=== PATIENT | female | born 1965 | race Caucasian/White ===

== ENCOUNTER 2019-12-08 16:46 | Emergency (ER) | payer BC, SELFPAY ==
[2019-12-08 17:08] VITALS: BP 125/80; PULSE 80; RESP 16; TEMP 36.7; O2SAT 99
--- NOTE | 2019-12-08 17:32 | ED.GENADULT ---
HPI - General Adult General Chief complaint: Wound/Laceration Stated complaint: R FOREARM INJURY Source: patient and RN notes reviewed Mode of arrival: ambulatory Limitations: no limitations History of Present Illness HPI narrative: 2 days ago this patient scratched her right ventral forearm over the ulnar aspect on a wire. 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 This was a superficial abrasion but it has become reddened and minimally tender during that time. She has not had a tetanus vaccine in the past 10 years and would like to receive 1. She has never had any adverse reactions to tetanus vaccines. She has had no drainage from the area. Has not had any fever. She had no red streaking up or down the arm and no lesions have appeared elsewhere. She is otherwise felt well without any ear pain, no nasal drainage, no sore throat, no fever, no cough. She has had no nausea, no vomiting, no diarrhea. She has had no hematuria, no dysuria, no pyuria. She has had no rashes. She said no history of MRSA. Related Data Home Medications Medication Instructions Recorded Confirmed levothyroxine 100 mcg PO DAILY 10/26/19 12/08/19 Allergies Allergy/AdvReac Type Severity Reaction Status Date / Time No Known Allergies Allergy Verified 12/08/19 17:14 Review of Systems Review of Systems: Narrative: CONSTITUTIONAL: Denies fever, chills, or sweats. Noncontributory except as pertains to the past medical history and the history of present illness. EYES: Denies visual changes, redness, or discharge. ENT: Denies rhinorrhea, congestion, sore throat, or otalgia. CARDIOVASCULAR: Denies chest pain, palpitations, or edema. RESPIRATORY: Denies cough or dyspnea. GASTROINTESTINAL: Denies abdominal pain, nausea, vomiting, or diarrhea. GENITOURINARY: Denies dysuria or hematuria. SKIN: Denies rash or itching. MUSCULOSKELETAL: Denies back pain, joint pain, or myalgia. NEUROLOGIC: Denies headache, numbness, or weakness. PSYCHIATRIC: Denies anxiety or depression. [facility] Social History Social History Smoking status: Never smoker Alcohol intake: current Comments At time of signature, I have reviewed and agree with nursing past medical, surgical, social, and family history.Please see nursing chart for further information. There is no relevant family history pertinent to the presenting complaint. Exam Narrative: Exam Narrative: GENERAL: Well-appearing, well-nourished, and in no acute distress. HEAD: Normocephalic, atraumatic. EYES: PERRLA and EOMI. EARS: TM's clear bilaterally and the canals are clear. NOSE: Nares clear, no rhinorrhea or epistaxis. THROAT:Mucous membranes moist.Oropharynx normal without erythema or exudates. NECK: Supple. No adenopathy of the neck, supraclavicular, axillary, or inguinal areas. There are no wheezes, no rales, no retractions, no use accessory muscle respirations. Patient's not cyanotic and not dyspneic. RESPIRATORY: No respiratory distress. Airway patent. Respirations non-labored. Clear to auscultation. HEART: Regular rate and rhythm. No murmur heard. Normal peripheral pulses. ABDOMEN: Soft, nontender, nondistended, normal active bowel sounds.No masses. No rebound or guarding, No organomegaly. EXTREMITIES: No clubbing/cyanosis/ edema. Normal strength & range of motion. The extremity exam is normal except for right ventral forearm which has a 9 cm superficial abrasion which is become infected on the ulnar aspect this is a longitudinal abrasion. There is no bleeding. There is no evidence of any abscess formation. There is no red streaking up or down the arm. She has normal range of motion the fingers and thumb as well as the wrist, elbow, and shoulder of the right arm. There are no other lesions globally. There are no pustules. There are no petechiae. There are no puncture beth. No insect bites or insect seen. There are no other skin lesions globally. After discussion with the patient today s
[2019-12-08] MEDS: TETANUS,DIPHTHERIA,AC PERTUSSIS ADULT 0.5 ML (ADACEL) IM (17:49)
== END 2019-12-08 18:00 | disposition home or self-care (01) ==
PROVIDERS: Emergency Provider Family Medicine; PCP Family Medicine
DX: S50.811A Abrasion of right forearm, initial encounter (principal); W26.8XXA Contact with other sharp object(s), not elsewhere classified, initial encounter; L03.113 Cellulitis of right upper limb; Z23 Encounter for immunization; E03.9 Hypothyroidism, unspecified; Z85.3 Personal history of malignant neoplasm of breast; Z92.21 Personal history of antineoplastic chemotherapy; Z92.3 Personal history of irradiation
CPT/HCPCS: 90471; 90715; 99213; G0463

== ENCOUNTER 2024-04-12 01:02 | Day surgery (SDC) | payer BC, SELFPAY ==
[2024-03-29 12:56] VITALS: BMI 25.0
[2024-04-12 09:51] VITALS: BP 142/86; PULSE 76; RESP 16; TEMP 36.6; O2SAT 98
[2024-04-12] MEDS: LACTATED RINGERS 1,000 ML 150 ML IV CONT (09:58)
--- NOTE | 2024-04-12 10:19 | P.PNAN_ITS ---
Anes - Initial Pre Proc Eval Procedure: Operation Date: 04/12/24 11:30 Proposed Procedures p Screening Colonoscopy - Antwan Pryor MD Date/Time: 04/12/24 10:19 Surgeon: Antwan Pryor MD Pre Op Diagnosis: Neoplasm screening Patient Data Age: 58 Gender: F Height: 1.65 m Weight: 67.5 kg Last Vital Signs Temp 97.8 F 04/12/24 09:51 Pulse 76 04/12/24 09:51 Resp 16 04/12/24 09:51 BP 142/86 H 04/12/24 09:51 Pulse Ox 98 04/12/24 09:51 O2 Del Method Room Air 04/12/24 09:51 Allergies Allergy/AdvReac Type Severity Reaction Status Date / Time No Known Allergies Allergy Verified 04/12/24 09:50 Home Medications Medication Instructions Recorded Confirmed Type levothyroxine 100 mcg capsule 100 mcg PO DAILY 10/26/19 04/12/24 History rosuvastatin 20 mg tablet 20 mg PO DAILY 03/29/24 03/29/24 History Patient hx anesthesia problems: none Family hx anesthesia problems: none Results Review: All pre-operative results and documents have been reviewed as part of the pre- operative evaluation. PMFSH Social History Social History Years smoked: 20 Smoking status: Never smoker Tobacco type: cigarettes Alcohol intake: current Drinks per week: 4 Substance use: never Substance use type: does not use Living arrangements: with family Spiritual care concerns: No Anes - Eval Final PreProcedure Day of Procedure 04/12/24 10:19 Patient weight: normal Heart: regular rate and rhythm Lungs: clear to auscultation Airway: Mallampati scale class II Neurological: alert and oriented Last oral intake: >/= 8 hours ASA classification: III Emergent: no Anesthetic plan: proceed Anesthesia type and monitoring: general GIVS and standard monitoring Results Review: All pre-operative results and documents have been reviewed as part of the pre- operative evaluation. Informed Consent: The patient's anesthetic plan and its attendant risks and benefits were discussed with the patient/family/POA. Questions were solicited and answers provided to the satisfaction of the patient/family/POA.
--- NOTE | 2024-04-12 10:48 | PM.HPGS ---
History of Present Illness History of Present Illness Consent: Risks, benefits, and alternatives have been discussed and questions answered. Patient agrees to proceed with procedure. Chief complaint: Neoplasm screening Narrative: Natasha Coulter is a 58 year old female here for first screening colonoscopy Review of Systems Review of Systems: All systems reviewed & are unremarkable except as noted in HPI and below PMFSH Past Medical History Medical History (Updated 04/12/24 @ 10:50 by Antwan Pryor MD) Colon cancer screening Social History Social History Years smoked: 20 Smoking status: Never smoker Tobacco type: cigarettes Alcohol intake: current Drinks per week: 4 Substance use: never Substance use type: does not use Living arrangements: with family Spiritual care concerns: No Meds Home Medications and Allergies Home Medications Medication Instructions Recorded Confirmed Type levothyroxine 100 mcg capsule 100 mcg PO DAILY 10/26/19 04/12/24 History rosuvastatin 20 mg tablet 20 mg PO DAILY 03/29/24 03/29/24 History Allergies Allergy/AdvReac Type Severity Reaction Status Date / Time No Known Allergies Allergy Verified 04/12/24 09:50 Vital Signs Vital Signs - 24 hr 04/12/24 09:51 Temperature 97.8 F Pulse Rate 76 Respiratory Rate 16 Blood Pressure 142/86 H Pulse Oximetry 98 Oxygen Delivery Room Air Exam Const: General: comfortable and no acute distress HENMT: Face/Nose/Sinus: Normal nares present Eyes: General: appearance normal, both eyes and all related structures Neck: Neck: no JVD Resp: Auscultation: clear to auscultation bilaterally Cardio: Rate: regular rate Rhythm: regular rhythm GI: Inspection: non-distended GI Palp: Yes Soft to palpation Skin: General skin exam: normal color Neuro: General: gait normal Speech: normal speech Extrem: General: normal to inspection Psych: Mental Status: mental status grossly normal Assessment and Plan Assessment and plan (1) Colon cancer screening: Code(s): Z12.11 - Encounter for screening for malignant neoplasm of colon Status: Acute Assessment and Plan: colonoscopy
[2024-04-12 11:04] VITALS: BP 115/65; PULSE 90; RESP 24; O2SAT 98
[2024-04-12 11:14] VITALS: BP 119/68; PULSE 63; RESP 15; O2SAT 98
[2024-04-12 11:24] VITALS: BP 128/71; PULSE 66; RESP 17; O2SAT 97
== END 2024-04-12 11:34 | disposition home or self-care (01) ==
PROVIDERS: PCP Family Medicine; Visit Provider Internal Medicine Gastroenterology
PROC: 0DJD8ZZ Inspection of Lower Intestinal Tract, Via Natural or Artificial Opening Endoscopic (ICD-10-PCS; CPT 45378; principal; 2024-04-12 11:30)
DX: Z12.11 Encounter for screening for malignant neoplasm of colon (principal); K57.30 Diverticulosis of large intestine without perforation or abscess without bleeding; K64.8 Other hemorrhoids
CPT/HCPCS: 45378; J2704; J7120